=== PATIENT | male | born 1945 | race Caucasian/White ===

== ENCOUNTER 2019-08-20 10:47 | Observation (INO) | payer MEDICARE, OTHER ==
[2019-08-20] MEDS ORDERED: Sodium Chloride 0.9% 10 ML Syringe FLUSH PRN (11:10)
[2019-08-20] MEDS ORDERED: Nitroglycerin 0.4 MG Tab.SL SL ONE (11:10)
[2019-08-20 11:55] LABS: ANION GAP 16.2 mmol/L (10-20); CHLORIDE,CL 100 mmol/L (98-107); SODIUM,NA 140 mmol/L (136-145)
--- NOTE | 2019-08-20 12:16 | CR ---
[id number] RAD/RAD Chest PA or AP 1V EXAM: RAD Chest PA or AP 1V INDICATION: CHEST PAIN. COMPARISON: January 2016. DISCUSSION: Left chest wall cardiac conduction device in place. Cardiomediastinal silhouette is normal in size and contour. No infiltrate, effusion, pneumothorax, or edema. Calcified granuloma in the right lung base. IMPRESSION: Negative examination of the chest. Forrest Fischer MD 08/20/19 [id number] Thank you for allowing us to participate in the care of your patient.
--- NOTE | 2019-08-20 12:25 | EDM.PDOC ---
ED HPI GENERAL MEDICAL PROBLEM - General Chief Complaint: Cardiovascular Problem Stated Complaint: chest pain Time Seen by Provider: 08/20/19 11:00 Source of Information: Reports: Patient History Limitations: Reports: No Limitations - History of Present Illness INITIAL COMMENTS - FREE TEXT/NARRATIVE: Patient comes into the emergency department with complaints of chest discomfort post pacemaker defibrillation. Patient was driving and he felt his legs tingling in the next thing he remembers is waking up in the middle of an intersection. He states earlier in the day he was on a riding tractor snowblowing snow. he denies having any chest pain or discomfort prior to the defibrillation of his pacemaker. Patient states that he was told by his hardware trainer if his pacemaker does ever defibrillate that he needs to report to the emergency department immediately. Patient states that he does have some chest tightness currently however he feels is more musculoskeletal. Prior to arrival he did take a nitroglycerin and did states he did not notice much relief. Currently the patient denies any shortness of breath, nausea, vomiting, GI upset or peripheral edema. Patient does have a history of cardiovascular disease and congestive heart failure. He states he has not taken his Lasix last 2 days for he has not had any waking is excellent had weight loss. Onset: Sudden Location: Reports: Chest Quality: Reports: Ache, Throbbing Severity: Mild Improves with: Reports: None Worsens with: Reports: None Context: Reports: Activity Associated Symptoms: Reports: No Other Symptoms - Related Data Allergies Allergy/AdvReac Type Severity Reaction Status Date / Time colchicine Allergy Hives Verified 08/20/19 11:56 potassium chloride Allergy Hives Verified 08/20/19 11:56 [From Klor-Con] atorvastatin calcium AdvReac Muscle Verified 08/20/19 11:56 [From Lipitor] Aches lisinopril AdvReac Muscle Verified 08/20/19 11:56 Aches rosuvastatin calcium AdvReac Muscle Verified 08/20/19 11:56 [From Crestor] Aches simvastatin [From Zocor] AdvReac Muscle Verified 08/20/19 11:56 Aches Home Meds: Home Meds Cyanocobalamin (Vitamin B-12) [Vitamin B-12] 750 mcg PO BID 02/02/16 [History] Flaxseed Oil [Flax Oil] 4,000 mg PO BID 02/02/16 [History] Furosemide 40 mg PO BID 02/02/16 [History] Hyalur Ac/Chond Sul/Colg II/AA [Hyaluronic Acid 40 MG] 166 mg PO DAILY 02/02/16 [History] Melatonin/Pyridoxine HCl (B6) [Melatonin 3 mg Tablet] 1 tab PO DAILY PRN [History] Rivaroxaban [Xarelto] 20 mg PO BEDTIME 02/02/16 [History] metOLazone [Metolazone] 2.5 mg PO Q3D PRN 02/02/16 [History] Docosahexanoic Acid [DHA] 200 mg PO BID 07/20/16 [History] Folic Acid 400 mg PO BID 07/20/16 [History] Losartan [Cozaar] 25 mg PO DAILY 07/20/16 [History] Nitroglycerin [Nitrostat] 0.4 mg SL Q5M PRN 07/20/16 [History] Non-Formulary Medication [NF Drug] 1,250 mg PO BID 07/20/16 [History] Non-Formulary Medication [NF Drug] 2 tab PO DAILY 07/20/16 [History] Non-Formulary Medication [NF Drug] 30 mg PO BID 07/20/16 [History] Non-Formulary Medication [NF Drug] 200 mg PO BID 07/20/16 [History] Olopatadine [Patanol 0.1% Ophth Soln] 1 drop EYEBOTH BID PRN 07/20/16 [History] [place]-3/DHA/Epa/Fish Oil [[place] 3 500 Softgel] 200 mg PO BID 07/20/16 [History] Pyridoxine HCl (Vitamin B6) [Pyridoxine HCl] 30 mg PO BID 07/20/16 [History] Saw [place] 500 mg PO BID 07/20/16 [History] Selenium 100 mcg PO DAILY 07/20/16 [History] Shark Cartilage [Shark Fin Cartilage] 1 tab PO BID 07/20/16 [History] Spironolactone [Aldactone] 25 mg PO DAILY 07/20/16 [History] Ubiquinol 100 mg PO BID 07/20/16 [History] cycloSPORINE [Restasis] 1 drop EYEBOTH DAILY 07/20/16 [History] Metoprolol Succinate [Toprol XL] 150 mg PO DAILY 11/27/16 [History] Past Medical History HEENT History: Reports: Impaired Vision Cardiovascular History: Reports: Afib, Cardiomyopathy, High Cholesterol Other Cardiovascular History: ICD, ventricular tachycardia, systolic heart failure Respiratory History: Reports: SOB Gastrointestinal History: Reports: None Genitourinary History: Reports: None Musculoskeletal History: Reports: None Neurological History: Reports: None Psychiatric History: Reports: None Endocrine/Metabolic History: Reports: Other (See Below) Other Endocrine/Metabolic History: impaired fasting glucose Hematologic History: Reports: None Immunologic History: Reports: None Oncologic (Cancer) History: Reports: None Dermatologic History: Reports: None - Past Surgical History HEENT Surgical History: Reports: Naso-Sinus Surgery Cardiovascular Surgical History: Reports: AICD Respiratory Surgical History: Reports: None GI Surgical History: Reports: Colonoscopy Male Surgical History: Reports: Prostate Biopsy, Vasectomy, Other (See Below) Neurological Surgical History: Reports: None Musculoskeletal Surgical History: Reports: Other (See Below) Oncologic Surgical History: Reports: None Dermatological Surgical History: Reports: Skin Biopsy Social & Family History - Tobacco Use Smoking Status *Q: Former Smoker Used Tobacco, but Quit: Yes Month/Year Tobacco Last Used: 1/ ED ROS GENERAL - Review of Systems Review Of Systems: Comprehensive ROS is negative, except as noted in HPI. Constitutional: Reports: No Symptoms HEENT: Reports: No Symptoms Respiratory: Reports: No Symptoms Cardiovascular: Reports: No Symptoms Endocrine: Reports: No Symptoms GI/Abdominal: Reports: No Symptoms Musculoskeletal: Reports: No Symptoms Skin: Reports: No Symptoms Neurological: Reports: No Symptoms Psychiatric: Reports: No Symptoms Hematologic/Lymphatic: Reports: No Symptoms ED EXAM, GENERAL - Physical Exam Exam: See Below Exam Limited By: No Limitations General Appearance: Alert, WD/WN, No Apparent Distress Eye Exam: Bilateral Eye: EOMI, PERRL Nose: Normal Inspection, Normal Mucosa Throat/Mouth: Normal Inspection, Normal Lips Head: Atraumatic, Normocephalic Neck: Normal Inspection, Supple, Non-Tender, Full Range of Motion Respiratory/Chest: No Respiratory Distress, Lungs Clear, Normal Breath Sounds, No Accessory Muscle Use, Chest Non-Tender Cardiovascular: Normal Peripheral Pulses, Regular Rate, Rhythm, No Edema, No Murmur Peripheral Pulses: 4+: Radial (L), Radial (R), Dorsalis Pedis (L), Dorsalis Pedis (R) GI/Abdominal: Normal Bowel Sounds, Soft, Non-Tender, No Distention Back Exam: Normal Inspection, Full Range of Motion Extremities: Normal Inspection, Normal Range of Motion, Non-Tender, No Pedal Edema, Normal Capillary Refill Neurological: Alert, Oriented, CN II-XII Intact, Normal Cognition, Normal Gait, No Motor/Sensory Deficits Psychiatric: Normal Affect, Normal Mood Skin Exam: Warm, Dry, Intact, Normal Color Course - Vital Signs Last Recorded V/S: Last Vital Signs Temp 36.9 C 08/20/19 10:47 Pulse 66 08/20/19 10:47 Resp 18 08/20/19 10:47 BP 125/62 08/20/19 10:47 Pulse Ox 92 L 08/20/19 10:47 - Orders/Labs/Meds Orders: Active Orders 24 hr Category Date Time Status Cardiac Monitoring [RC] . DIRECTED Care 08/20/19 11:10 Active EKG Documentation Completion [RC] STAT Care 08/20/19 11:10 Active Chest 1V Frontal [CR] Stat Exams 08/20/19 11:11 Taken Sodium Chloride 0.9% [Saline Flush] Med 08/20/19 11:10 Active 10 ml FLUSH ASDIRECTED PRN Peripheral IV Insertion Adult [OM.PC] Stat Oth 08/20/19 11:10 Ordered Medication Orders Sodium Chloride (Saline Flush) 10 ml FLUSH ASDIRECTED PRN PRN Reason: Keep Vein Open Labs: Laboratory Tests 08/20/19 08/20/19 08/20/19 Range/Units 11:20 11:20 11:20 WBC 5.5 (4.0-10.0) x10^3/uL RBC 4.52 (4.5-6.0) x10^6/uL Hgb 14.3 (14.0-18.0) g/dL Hct 40.6 (40.0-52.0) % MCV 89.8 (78.0-93.0) fL MCH 31.6 (26.0-32.0) pg MCHC 35.2 (32.0-36.0) g/dL RDW Coeff of Angelica 13.0 (10.0-15.0) % Plt Count 196 (130-400) x10^3/uL Neut % (Auto) 67.0 (50.0-80.0) % Lymph % (Auto) 19.1 L (25.0-50.0) % [place] % (Auto) 10.0 (2.0-11.0) % Eos % (Auto) 3.4 (0.0-4.0) % Baso % (Auto) 0.5 (0.2-1.2) % PT 13.5 H (10.0-12.8) SEC INR 1.2 L (2.0-3.5) Sodium 140 (136-145) mmol/L Potassium 3.2 L (3.5-5.1) mmol/L Chloride 100 (98-107) mmol/L Carbon Dioxide 27 (21-32) mmol/L Anion Gap 16.2 (10-20) mmol/L BUN 23 H (7-18) mg/dL Creatinine 1.1 (0.70-1.30) mg/dL Est Cr Clr Drug Dosing TNP Estimated GFR (MDRD) > 60 Glucose 231 H (74-106) mg/dL Calcium 9.7 (8.5-10.1) mg/dL Corrected Calcium 10.26 H (8.5-10.1) mg/dL Total Bilirubin 0.5 (0.2-1.0) mg/dL AST 20 (15-37) U/L ALT 28 (16-63) U/L Alkaline Phosphatase 77 (46-116) U/L POC Troponin I (0.00-0.08) ng/mL NT-Pro-B Natriuret Pep 548 H (<=125) pg/mL Total Protein 7.0 (6.4-8.2) g/dL Albumin 3.3 L (3.4-5.0) g/dL Globulin 3.7 Albumin/Globulin Ratio 0.89 08/20/19 Range/Units 11:25 WBC (4.0-10.0) x10^3/uL RBC (4.5-6.0) x10^6/uL Hgb (14.0-18.0) g/dL Hct (40.0-52.0) % MCV (78.0-93.0) fL MCH (26.0-32.0) pg MCHC (32.0-36.0) g/dL RDW Coeff of Angelica (10.0-15.0) % Plt Count (130-400) x10^3/uL Neut % (Auto) (50.0-80.0) % Lymph % (Auto) (25.0-50.0) % [place] % (Auto) (2.0-11.0) % Eos % (Auto) (0.0-4.0) % Baso % (Auto) (0.2-1.2) % PT (10.0-12.8) SEC INR (2.0-3.5) Sodium (136-145) mmol/L Potassium (3.5-5.1) mmol/L Chloride (98-107) mmol/L Carbon Dioxide (21-32) mmol/L Anion Gap (10-20) mmol/L BUN (7-18) mg/dL Creatinine (0.70-1.30) mg/dL Est Cr Clr Drug Dosing Estimated GFR (MDRD) Glucose (74-106) mg/dL Calcium (8.5-10.1) mg/dL Corrected Calcium (8.5-10.1) mg/dL Total Bilirubin (0.2-1.0) mg/dL AST (15-37) U/L ALT (16-63) U/L Alkaline Phosphatase (46-116) U/L POC Troponin I 0.01 (0.00-0.08) ng/mL NT-Pro-B Natriuret Pep (<=125) pg/mL Total Protein (6.4-8.2) g/dL Albumin (3.4-5.0) g/dL Globulin Albumin/Globulin Ratio Meds: Medications Generic Name Dose Route Start Last Admin Trade Name Freq PRN Reason Stop Dose Admin Sodium Chloride 10 ml 08/20/19 11:10 Saline Flush FLUSH ASDIRECTED PRN Keep Vein Open Discontinued Medications Generic Name Dose Route Start Last Admin Trade Name Freq PRN Reason Stop Dose Admin Nitroglycerin 0.4 mg 08/20/19 11:10 Nitrostat SL 08/20/19 11:11 ONETIME ONE Departure - Departure Time of Disposition: 12:30 Disposition: Refer to Observation Condition: Good Clinical Impression: Implantable cardioverter-defibrillator discharge Chest pain Qualifiers: Chest pain type: unspecified Qualified Code(s): R07.9 - Chest pain, unspecified Referrals: Oz Restrepo NP [Primary Care Provider] - Sepsis Event Note - Evaluation Sepsis Screening Result: No Definite Risk - Focused Exam Vital Signs: Vital Signs Temp Pulse Resp BP Pulse Ox 08/20/19 10:47 36.9 C 66 18 125/62 92 L Date Exam was Performed: 08/20/19 Time Exam was Performed: 12:16 - Problem List & Annotations (1) Chest pain SNOMED Code(s): 73096625 Code(s): R07.9 - CHEST PAIN, UNSPECIFIED Status: Acute Current Visit: Yes Qualifiers: Chest pain type: unspecified Qualified Code(s): R07.9 - Chest pain, unspecified (2) Implantable cardioverter-defibrillator discharge SNOMED Code(s): 090501829, 035988686 Code(s): Z45.02 - ENCNTR FOR ADJUST AND MGMT OF AUTOMATIC IMPLNTBL CARD DEFIB Status: Acute Current Visit: Yes - Problem List Review Problem List Initiated/Reviewed/Updated: Yes - My Orders Last 24 Hours: My Active Orders 08/20/19 11:10 Cardiac Monitoring [RC] . DIRECTED EKG Documentation Completion [RC] STAT Sodium Chloride 0.9% [Saline Flush] 10 ml FLUSH ASDIRECTED PRN Peripheral IV Insertion Adult [OM.PC] Stat 08/20/19 11:11 Chest 1V Frontal [CR] Stat - Assessment/Plan Admission H&P: Please use this note as an admission H&P Last 24 Hours: My Active Orders 08/20/19 11:10 Cardiac Monitoring [RC] . DIRECTED EKG Documentation Completion [RC] STAT Sodium Chloride 0.9% [Saline Flush] 10 ml FLUSH ASDIRECTED PRN Peripheral IV Insertion Adult [OM.PC] Stat 08/20/19 11:11 Chest 1V Frontal [CR] Stat Assessment:: 1. Pacemaker/defibrillator discharge 2. Chest pain Plan: 1. Labs completed in the ER. Results reviewed with the patient 2. EKG completed in the ER. Results reviewed with patient 3. Chest x-ray completed in the ER. Results reviewed with patient 4. IV initiated in the ER 5 . Nitroglycerin sublingual given in the ER. 6. Patient states that he still has some musculoskeletal tenderness. He is unsure if it's related to her increased workload over the past couple days with the snow removal. He states currently he does not feel any chest tightness. Patient is willing to be admitted observation for further medical management. Currently the patient is not wanting to be transferred to higher level of care he liked to be observed. 7. Patient will be admitted to observation as a code level 1, cardiac monitoring, cardiac enzymes monitoring, labs ordered for a.m. nursing staff updated. Patient is agreeable with the above plan of care. 8. All questions and concerns were addressed prior to patient's admission.
[2019-08-20] MEDS ORDERED: Nitroglycerin 0.4 MG Tab.SL SL PRN ×2 (12:33→15:00)
[2019-08-20] MEDS ORDERED: Ondansetron 4 MG Tab.DIS PO PRN (12:33)
[2019-08-20] MEDS ORDERED: Acetaminophen 325 MG Tab PO PRN (12:36)
[2019-08-20] MEDS ORDERED: Ibuprofen 200 MG Tab PO PRN (12:36)
[2019-08-20] MEDS ORDERED: Metolazone 2.5 MG Tab PO PRN (15:00)
[2019-08-20] MEDS ORDERED: RIVAROXABAN 20 MG PO SCH (20:00)
[2019-08-20] MEDS ORDERED: DHA PO SCH (20:00)
[2019-08-20] MEDS ORDERED: CYANOCOBALAMIN PO SCH (20:00)
[2019-08-20] MEDS ORDERED: DOCOSAHEXANOIC ACID 200 MG PO SCH (20:00)
[2019-08-20] MEDS ORDERED: Furosemide 40 MG Tab PO SCH (20:00)
[2019-08-20] MEDS ORDERED: SAW PALMETTO 500 MG PO SCH (20:00)
[2019-08-20] MEDS ORDERED: SHARK CARTILAGE PO SCH (20:00)
[2019-08-20] MEDS ORDERED: OMEGA PO SCH (20:00)
[2019-08-20] MEDS ORDERED: FLAXSEED OIL PO SCH (20:00)
[2019-08-20] MEDS ORDERED: PYRIDOXINE HCL PO SCH (20:00)
[2019-08-20] MEDS ORDERED: UBIQUINOL 100 MG PO SCH (20:00)
[2019-08-20] MEDS ORDERED: FISH OIL PO SCH (20:00)
[2019-08-20] MEDS ORDERED: EPA PO SCH (20:00)
[2019-08-20] MEDS ORDERED: FOLIC ACID 400 MG PO SCH (20:00)
[2019-08-20] MEDS ORDERED: METOPROLOL SUCCINATE 100 MG PO SCH (22:00)
[2019-08-20] MEDS ORDERED: ESCITALOPRAM 10 MG PO SCH (22:00)
[2019-08-21] MEDS ORDERED: Nitroglycerin 2% Oint 1 GM UD Packet TOP ONE (01:27)
[2019-08-21] MEDS ORDERED: Aspirin 81 MG Tab.Chew PO ONE (01:31)
[2019-08-21 01:39] VITALS: BP 99/61; PULSE 76
--- NOTE | 2019-08-21 01:42 | PCM.DCSUM1 ---
Discharge Summary - Hospital Course Free Text/Narrative:: Pt. has been admitted to [facility] with tele following an AICD discharge earlier today. Care was assumed of this patient at shift change at 1900. Please refer to admission H and P by Vee Gallagher NP. Pt. initial troponin and repeat troponin were both negative. His troponin drawn at midnight was 0.153. When questioned, pt. stated that he had been experiencing some mild chest discomfort that was not reported to his nurse. Denies any jaw, arm, neck or back pain. No shortness of breath. Repeat EKG did not reveal any acute ST or T wave changes. He was in a-fib, this AM he was in a sinus rhythm. He has a history of paroxysmal atrial fibrillation and is currently on xaralto. Pt. states that his last EKG showed "40% blockage" in one of his coronary arteries, he was unable to recall which one. - Discharge Data Discharge Date: 08/21/19 Discharge Disposition: DC/Tfer to Acute Hospital 02 Condition: Good - Referral to Home Health Primary Care Physician: Oz Restrepo NP - Discharge Diagnosis/Problem(s) (1) NSTEMI (non-ST elevated myocardial infarction) SNOMED Code(s): 28461486 ICD Code: I21.4 - NON-ST ELEVATION (NSTEMI) MYOCARDIAL INFARCTION Status: Acute Current Visit: No - Discharge Plan Home Medications: Home Meds Cyanocobalamin (Vitamin B-12) [Vitamin B-12] 750 mcg PO BID 02/02/16 [History] Flaxseed Oil [Flax Oil] 4,000 mg PO BID 02/02/16 [History] Furosemide 80 mg PO BID 02/02/16 [History] Rivaroxaban [Xarelto] 20 mg PO BEDTIME 02/02/16 [History] metOLazone [Metolazone] 2.5 mg PO Q3D PRN 02/02/16 [History] Docosahexanoic Acid [DHA] 200 mg PO BID 07/20/16 [History] Folic Acid 400 mg PO BID 07/20/16 [History] Nitroglycerin [Nitrostat] 0.4 mg SL Q5M PRN 07/20/16 [History] Non-Formulary Medication [NF Drug] 1,250 mg PO BID 07/20/16 [History] Non-Formulary Medication [NF Drug] 2 tab PO DAILY 07/20/16 [History] Non-Formulary Medication [NF Drug] 30 mg PO BID 07/20/16 [History] Non-Formulary Medication [NF Drug] 200 mg PO BID 07/20/16 [History] [place]-3/DHA/Epa/Fish Oil [[place] 3 500 Softgel] 200 mg PO BID 07/20/16 [History] Pyridoxine HCl (Vitamin B6) [Pyridoxine HCl] 30 mg PO BID 07/20/16 [History] Saw [place] 500 mg PO BID 07/20/16 [History] Selenium 100 mcg PO DAILY 07/20/16 [History] Shark Cartilage [Shark Fin Cartilage] 1 tab PO BID 07/20/16 [History] Spironolactone [Aldactone] 50 mg PO DAILY 07/20/16 [History] Ubiquinol 100 mg PO BID 07/20/16 [History] cycloSPORINE [Restasis] 1 drop EYEBOTH DAILY 07/20/16 [History] Metoprolol Succinate [Toprol XL] 100 mg PO DAILY 11/27/16 [History] Escitalopram [Lexapro] 10 mg PO DAILY 08/20/19 [History] Forms: ED Department Discharge Referrals: Oz Restrepo NP [Primary Care Provider] - - Discharge Summary/Plan Comment DC Time >30 min.: Yes Discharge Summary/Plan Comment: Pt. will be transferred to [facility]. Dr. Gonzales, hospitalist, graciously accepts patient in transfer. He was given a 324mg aspirin prior to transfer. He is a full code. He will be transported via [facility] ground ambulance. - General Info Date of Service: 08/21/19 Functional Status: Reports: Pain Controlled - Review of Systems General: Reports: No Symptoms HEENT: Reports: No Symptoms Pulmonary: Reports: No Symptoms Cardiovascular: Reports: Chest Pain, Other (See HPI) Gastrointestinal: Reports: No Symptoms Genitourinary: Reports: No Symptoms Musculoskeletal: Reports: No Symptoms Skin: Reports: No Symptoms Neurological: Reports: No Symptoms Psychiatric: Reports: No Symptoms - Patient Data Vitals - Most Recent: Last Vital Signs Temp 36.7 C 08/20/19 21:49 Pulse 68 08/20/19 21:49 Resp 17 08/20/19 21:49 BP 112/59 L 08/20/19 21:49 Pulse Ox 93 L 08/20/19 21:49 Weight - Most Recent: 97.386 kg I&O - Last 24 hours: Intake & Output 08/20/19 08/20/19 08/21/19 14:59 22:59 06:59 Intake Total 300 480 Output Total 150 Balance 150 480 Lab Results - Last 24 hrs: Laboratory Results - last 24 hr 08/20/19 08/20/19 08/20/19 Range/Units 11:20 11:20 11:20 WBC 5.5 (4.0-10.0) x10^3/uL RBC 4.52 (4.5-6.0) x10^6/uL Hgb 14.3 (14.0-18.0) g/dL Hct 40.6 (40.0-52.0) % MCV 89.8 (78.0-93.0) fL MCH 31.6 (26.0-32.0) pg MCHC 35.2 (32.0-36.0) g/dL RDW Coeff of Angelica 13.0 (10.0-15.0) % Plt Count 196 (130-400) x10^3/uL Neut % (Auto) 67.0 (50.0-80.0) % Lymph % (Auto) 19.1 L (25.0-50.0) % [place] % (Auto) 10.0 (2.0-11.0) % Eos % (Auto) 3.4 (0.0-4.0) % Baso % (Auto) 0.5 (0.2-1.2) % PT 13.5 H (10.0-12.8) SEC INR 1.2 L (2.0-3.5) Sodium 140 (136-145) mmol/L Potassium 3.2 L (3.5-5.1) mmol/L Chloride 100 (98-107) mmol/L Carbon Dioxide 27 (21-32) mmol/L Anion Gap 16.2 (10-20) mmol/L BUN 23 H (7-18) mg/dL Creatinine 1.1 (0.70-1.30) mg/dL Est Cr Clr Drug Dosing TNP Estimated GFR (MDRD) > 60 Glucose 231 H (74-106) mg/dL Calcium 9.7 (8.5-10.1) mg/dL Corrected Calcium 10.26 H (8.5-10.1) mg/dL Total Bilirubin 0.5 (0.2-1.0) mg/dL AST 20 (15-37) U/L ALT 28 (16-63) U/L Alkaline Phosphatase 77 (46-116) U/L POC Troponin I (0.00-0.08) ng/mL Troponin I (0.00-0.08) ng/mL NT-Pro-B Natriuret Pep 548 H (<=125) pg/mL Total Protein 7.0 (6.4-8.2) g/dL Albumin 3.3 L (3.4-5.0) g/dL Globulin 3.7 Albumin/Globulin Ratio 0.89 08/20/19 08/20/19 08/21/19 Range/Units 11:25 17:00 00:10 WBC (4.0-10.0) x10^3/uL RBC (4.5-6.0) x10^6/uL Hgb (14.0-18.0) g/dL Hct (40.0-52.0) % MCV (78.0-93.0) fL MCH (26.0-32.0) pg MCHC (32.0-36.0) g/dL RDW Coeff of Angelica (10.0-15.0) % Plt Count (130-400) x10^3/uL Neut % (Auto) (50.0-80.0) % Lymph % (Auto) (25.0-50.0) % [place] % (Auto) (2.0-11.0) % Eos % (Auto) (0.0-4.0) % Baso % (Auto) (0.2-1.2) % PT (10.0-12.8) SEC INR (2.0-3.5) Sodium (136-145) mmol/L Potassium (3.5-5.1) mmol/L Chloride (98-107) mmol/L Carbon Dioxide (21-32) mmol/L Anion Gap (10-20) mmol/L BUN (7-18) mg/dL Creatinine (0.70-1.30) mg/dL Est Cr Clr Drug Dosing Estimated GFR (MDRD) Glucose (74-106) mg/dL Calcium (8.5-10.1) mg/dL Corrected Calcium (8.5-10.1) mg/dL Total Bilirubin (0.2-1.0) mg/dL AST (15-37) U/L ALT (16-63) U/L Alkaline Phosphatase (46-116) U/L POC Troponin I 0.01 (0.00-0.08) ng/mL Troponin I 0.02 0.153 H* (0.00-0.08) ng/mL NT-Pro-B Natriuret Pep (<=125) pg/mL Total Protein (6.4-8.2) g/dL Albumin (3.4-5.0) g/dL Globulin Albumin/Globulin Ratio Med Orders - Current: Current Medications Acetaminophen (Tylenol) 650 mg PO Q4H PRN PRN Reason: Pain (Mild 1-3)/fever Aspirin (Halfprin) 81 mg PO DAILY [facility] Furosemide (Lasix) 80 mg PO BID [facility] Ibuprofen (Motrin) 600 mg PO Q6H PRN PRN Reason: Pain (mild 1-3) Metolazone (Zaroxolyn) 2.5 mg PO Q3D PRN PRN Reason: Edema Nitroglycerin (Nitrostat) 0.4 mg SL Q5M PRN PRN Reason: Chest Pain Stop: 08/21/19 12:35 Nitroglycerin (Nitrostat) 0.4 mg SL Q5M PRN PRN Reason: Chest Pain Nitroglycerin (Nitro-Bid 2%) 1 gm TOP ONETIME ONE Stop: 08/21/19 01:28 Non-Formulary Medication (Cyanocobalamin (Vitamin B-12) [Vitamin B-12]) 750 mcg PO BID [facility] Non-Formulary Medication (Cyclosporine [Restasis]) 1 drop EYEBOTH DAILY [facility] Non-Formulary Medication (Docosahexanoic Acid [Dha]) 200 mg PO BID [facility] Escitalopram [ Lexapro] 10 MgPtom 10 mg PO BEDTIME [facility] Last Admin: 08/21/19 00:34 Dose: 10 mg Non-Formulary Medication (Flaxseed Oil [Flax Oil]) 4,000 mg PO BID [facility] Non-Formulary Medication (Folic Acid [Folic Acid]) 400 mg PO BID [facility] Metoprolol Succinate (100mg Ptom) 1 each PO BEDTIME [facility] Last Admin: 08/21/19 00:30 Dose: 1 each Non-Formulary Medication (Ash[place]-3/Dha/Epa/Fish Oil [[place] 3 500 Softgel]) 200 mg PO BID [facility] Non-Formulary Medication (Pyridoxine Hcl (Vitamin B6) [Pyridoxine Hcl]) 30 mg PO BID [facility] Rivaroxaban [Xarelto (] 20 MgPtom) 20 mg PO BEDTIME [facility] Last Admin: 08/21/19 00:29 Dose: 20 mg Non-Formulary Medication (Saw [place] [Saw [place]]) 500 mg PO BID [facility] Non-Formulary Medication (Selenium [Selenium]) 100 mcg PO DAILY [facility] Non-Formulary Medication (Shark Cartilage [Shark Fin Cartilage]) 1 tab PO BID [facility] Non-Formulary Medication (Ubiquinol [Ubiquinol]) 100 mg PO BID [facility] Ondansetron HCl (Zofran Odt) 4 mg PO Q4H PRN PRN Reason: Nausea/Vomiting Sodium Chloride (Saline Flush) 10 ml FLUSH ASDIRECTED PRN PRN Reason: Keep Vein Open Spironolactone (Aldactone) 50 mg PO DAILY [facility] Discontinued Medications Aspirin (Aspirin) 324 mg PO ONETIME ONE Stop: 08/21/19 01:32 Nitroglycerin (Nitrostat) 0.4 mg SL ONETIME ONE Stop: 08/20/19 11:11 Last Admin: 08/20/19 11:41 Dose: 0.4 mg - Exam General: Reports: Alert, Oriented Lungs: Reports: Clear to Auscultation, Normal Respiratory Effort Cardiovascular: Reports: Regular Rate, Irregular Rhythm GI/Abdominal Exam: Soft, Non-Tender, No Organomegaly, No Distention (Male) Exam: Deferred Rectal (Males) Exam: Deferred Back Exam: Reports: Normal Inspection, Full Range of Motion Extremities: Normal Inspection, Normal Range of Motion, Non-Tender, No Pedal Edema, Normal Capillary Refill Skin: Reports: Warm, Dry, Intact Psy/Mental Status: Reports: Alert, Normal Affect, Normal Mood
[2019-08-21] MEDS ORDERED: Spironolactone 25 MG Tab PO SCH (08:00)
[2019-08-21] MEDS ORDERED: SELENIUM 100 MCG PO SCH (08:00)
[2019-08-21] MEDS ORDERED: Non-Formulary Medication 1 Each (Cyclosporine [Restasis] 1 DROP) EYEBOTH SCH (08:00)
[2019-08-21] MEDS ORDERED: Aspirin 81 MG Tab.EC PO SCH (08:00)
== END 2019-08-21 03:20 | disposition short-term general hospital (02) ==
LOC: VM.ED 10:47 → VM.MS 12:17
PROVIDERS: ADMIT Nurse Practitioner; ATTEND Nurse Practitioner
DX: I21.4 Non-ST elevation (NSTEMI) myocardial infarction (principal); I48.0 Paroxysmal atrial fibrillation; I50.22 Chronic systolic (congestive) heart failure; I42.9 Cardiomyopathy, unspecified; E78.00 Pure hypercholesterolemia, unspecified; Z88.8 Allergy status to other drugs, medicaments and biological substances; Z95.810 Presence of automatic (implantable) cardiac defibrillator; Z87.891 Personal history of nicotine dependence; Z79.01 Long term (current) use of anticoagulants; Z79.899 Other long term (current) drug therapy
CPT/HCPCS: 36415; 71045; 80053; 83880; 84484; 85025; 85610; 93005; 99285-25; A9270-GY; G0378

== ENCOUNTER 2020-05-04 14:08 | Emergency (ER) | payer MEDICARE, OTHER ==
--- NOTE | 2020-05-04 14:47 | EDM.PDOC ---
ED HPI GENERAL MEDICAL PROBLEM - General Chief Complaint: General Stated Complaint: ER Time Seen by Provider: 05/04/20 14:28 - History of Present Illness INITIAL COMMENTS - FREE TEXT/NARRATIVE: Amish is a 74 y/o male who arrives to the ER via EMS. He called 911 thi AM due to excessive fatigue and overall weakness. He reports that he had an EGD last Sunday at [facility] in [place] and the following day he had a colonoscopy. During that hospital stay he was given a unit of blood for a hgb of 7.0. Patient had apparently presented to [facility] with SOB and then while admitted melena was noted along with acute anemia so further GI studies were done. He reports he has a hard time taking a deep breath and he is so weak. He can hardly eat. He is supposed to follow up with Oz Restrepo CNP on Sunday, but he did think he could make it until then as bad as he feels. Patient was admitted at [facility] 04-24-2020 through 04-30-2020. - Related Data Allergies Allergy/AdvReac Type Severity Reaction Status Date / Time amiodarone Allergy Hives Verified 05/04/20 14:18 colchicine Allergy Hives Verified 05/04/20 14:18 potassium chloride Allergy Hives Verified 05/04/20 14:18 [From Klor-Con] atorvastatin calcium AdvReac Muscle Verified 05/04/20 14:18 [From Lipitor] Aches lisinopril AdvReac Muscle Verified 05/04/20 14:18 Aches rosuvastatin calcium AdvReac Muscle Verified 05/04/20 14:18 [From Crestor] Aches simvastatin [From Zocor] AdvReac Muscle Verified 05/04/20 14:18 Aches Home Meds: Home Meds Cyanocobalamin (Vitamin B-12) [Vitamin B-12] 750 mcg PO BID 02/02/16 [History] Flaxseed Oil [Flax Oil] 4,000 mg PO BID 02/02/16 [History] Furosemide 80 mg PO BID 02/02/16 [History] Rivaroxaban [Xarelto] 20 mg PO BEDTIME 02/02/16 [History] metOLazone [Metolazone] 2.5 mg PO Q3D PRN 02/02/16 [History] Docosahexaenoic Acid [DHA] 200 mg PO BID 07/20/16 [History] Folic Acid 400 mg PO BID 07/20/16 [History] Nitroglycerin [Nitrostat] 0.4 mg SL Q5M PRN 07/20/16 [History] Non-Formulary Medication [NF Drug] 1,250 mg PO BID 07/20/16 [History] Non-Formulary Medication [NF Drug] 2 tab PO DAILY 07/20/16 [History] Non-Formulary Medication [NF Drug] 30 mg PO BID 07/20/16 [History] Non-Formulary Medication [NF Drug] 200 mg PO BID 07/20/16 [History] [place]-3/DHA/Epa/Fish Oil [[place] 3 500 Softgel] 200 mg PO BID 07/20/16 [History] Pyridoxine HCl (Vitamin B6) [Pyridoxine HCl] 30 mg PO BID 07/20/16 [History] Saw [place] 500 mg PO BID 07/20/16 [History] Selenium 100 mcg PO DAILY 07/20/16 [History] Shark Cartilage [Shark Fin Cartilage] 1 tab PO BID 07/20/16 [History] Spironolactone [Aldactone] 50 mg PO DAILY 07/20/16 [History] Ubiquinol 100 mg PO BID 07/20/16 [History] cycloSPORINE [Restasis] 1 drop EYEBOTH DAILY 07/20/16 [History] Metoprolol Succinate [Toprol XL] 100 mg PO DAILY 11/27/16 [History] Escitalopram [Lexapro] 10 mg PO DAILY 08/20/19 [History] Past Medical History HEENT History: Reports: Impaired Vision Cardiovascular History: Reports: Afib, Cardiomyopathy, High Cholesterol Other Cardiovascular History: ICD, ventricular tachycardia, systolic heart failure Respiratory History: Reports: SOB Gastrointestinal History: Reports: None Genitourinary History: Reports: None Musculoskeletal History: Reports: None Neurological History: Reports: None Psychiatric History: Reports: None Endocrine/Metabolic History: Reports: Other (See Below) Other Endocrine/Metabolic History: impaired fasting glucose Hematologic History: Reports: None Immunologic History: Reports: None Oncologic (Cancer) History: Reports: None Dermatologic History: Reports: None - Past Surgical History HEENT Surgical History: Reports: Naso-Sinus Surgery Cardiovascular Surgical History: Reports: AICD Respiratory Surgical History: Reports: None GI Surgical History: Reports: Colonoscopy Male Surgical History: Reports: Prostate Biopsy, Vasectomy, Other (See Below) Neurological Surgical History: Reports: None Musculoskeletal Surgical History: Reports: Other (See Below) Oncologic Surgical History: Reports: None Dermatological Surgical History: Reports: Skin Biopsy Social & Family History - Tobacco Use Smoking Status *Q: Former Smoker Used Tobacco, but Quit: Yes Month/Year Tobacco Last Used: 1982 - Caffeine Use Caffeine Use: Reports: Soda, Tea - Recreational Drug Use Recreational Drug Use: No ED ROS GENERAL - Review of Systems Review Of Systems: See Below Constitutional: Reports: Weakness, Fatigue HEENT: Reports: No Symptoms Respiratory: Reports: Shortness of Breath Cardiovascular: Reports: No Symptoms Endocrine: Reports: No Symptoms GI/Abdominal: Reports: Decreased Appetite, Nausea. Denies: Hematemesis, Hematochezia, Melena, Vomiting : Reports: No Symptoms Musculoskeletal: Reports: No Symptoms Skin: Reports: No Symptoms Neurological: Reports: Weakness Psychiatric: Reports: No Symptoms Hematologic/Lymphatic: Reports: Anemia Immunologic: Reports: No Symptoms ED EXAM, GENERAL - Physical Exam Exam: See Below Exam Limited By: No Limitations General Appearance: Alert, WD/WN, No Apparent Distress (Elderly male) Eye Exam: Bilateral Eye: PERRL Ears: Normal External Exam, Normal Canal, Hearing Grossly Normal, Normal TMs Nose: Normal Inspection, Normal Mucosa Throat/Mouth: Normal Inspection, Normal Lips, Normal Teeth, Normal Voice, No Airway Compromise Head: Atraumatic, Normocephalic Neck: Normal Inspection, Supple Respiratory/Chest: No Respiratory Distress, Lungs Clear, Chest Non-Tender Cardiovascular: Normal Peripheral Pulses, Regular Rate, Rhythm, No Murmur, No Rub GI/Abdominal: Normal Bowel Sounds, Soft, Non-Tender, No Organomegaly (Male) Exam: Deferred Rectal (Males) Exam: Deferred Back Exam: Normal Inspection Extremities: Normal Inspection, Normal Capillary Refill Neurological: Alert, CN II-XII Intact, No Motor/Sensory Deficits Psychiatric: Flat Affect Skin Exam: Warm, Dry, Intact, Pallor Lymphatic: No Adenopathy EKG INTERPRETATION EKG Date: 05/04/20 Time: 17:33 Rhythm: Other (PVCs) Rate (Beats/Min): 98 [place]: Normal P-Wave: Absent QRS: Normal ST-T: Normal QT: Normal Comparison: No Change (Compared with previous 08-21-2019) Course - Vital Signs Text/Narrative:: 1428 The patient was seen by the [facility]. Labs ordered. Vitals stable. 1540 Labs reviewed. Note Hbg=7.4, Hct=25.1. Obtaining records from [facility] for review. 1555 Patient SOB without oxygen and requesting oxygen on for comfort. Sats-96% on RA. SFOB collected, no obvious blood on exam. 1630 +SFOB noted. Discussed with patient. 1645 [facility] contacted. Case discussed with Dr Burt and patient accepted. Additional labs, CXR, and EKG ordered. Will also transfuse 1 unit PRBCs and give Lasix 40mg IVP. Awaiting bed assignment. Plan discussed with patient who agrees. 1720 CXR reviewed, note right basilar pulmonary infiltrate, will give Ceftriaxone 1gm IVP to cover for pneumonia. 1752 Notified by lab of elevated Troponin 0.219. No EKG changes noted from previous, cannot exclude NSTEMI. Called [facility] and Dr Burt notified, awaiting return from [facility]. Last Recorded V/S: Last Vital Signs Temp 36.6 C 05/04/20 14:11 Pulse 79 05/04/20 16:43 Resp 18 05/04/20 16:43 BP 123/71 05/04/20 16:43 Pulse Ox 96 05/04/20 16:43 - Orders/Labs/Meds Orders: Active Orders 24 hr Category Date Time Status EKG Documentation Completion [RC] STAT Care 05/04/20 17:04 Ordered Chest 1V Frontal [CR] Stat Exams 05/04/20 17:03 Ordered INR,PT,PROTHROMBIN TIME [COAG] Stat Lab 05/04/20 17:04 Ordered PRO B-TYPE NATRIUR PEPT,BNPPRO [CHEM] Stat Lab 05/04/20 17:04 Ordered PTT,PARTIAL THROMBOPLSTIN TIME [COAG] Stat Lab 05/04/20 17:04 Ordered RED BLOOD CELLS LP [BBK] Stat Lab 05/04/20 17:00 Ordered RED BLOOD CELLS LP [BBK] Stat Lab 05/04/20 17:10 Stop Req TROPONIN I [CHEM] Stat Lab 05/04/20 17:04 Ordered TYPE AND SCREEN [BBK] Stat Lab 05/04/20 17:00 Ordered UA RFX CHASE AND CULT IF INDIC [URIN] Stat Lab 05/04/20 16:20 Ordered Transfuse Red Blood Cells [COMM] Stat Oth 05/04/20 17:01 Ordered Transfuse Red Blood Cells [COMM] Stat Ot 05/04/20 17:10 Ordered Labs: Laboratory Tests 05/04/20 05/04/20 05/04/20 Range/Units 14:38 15:00 15:00 WBC 8.4 (4.0-10.0) x10^3/uL RBC 3.20 L (4.5-6.0) x10^6/uL Hgb 7.4 L D (14.0-18.0) g/dL Hct 25.1 L (40.0-52.0) % MCV 78.4 D (78.0-93.0) fL MCH 23.1 L (26.0-32.0) pg MCHC 29.5 L (32.0-36.0) g/dL RDW Coeff of Angelica 16.7 H (10.0-15.0) % Plt Count 254 (130-400) x10^3/uL Add Manual Diff Yes Neutrophils % (Manual) 87 H (50-80) % Lymphocytes % (Manual) 9 L (25-50) % Monocytes % (Manual) 3 (2-11) % Eosinophils % (Manual) 1 (0-4) % Nucleated RBCs 1 (0-5) /100WBC Hypersegmented Neuts Rare H Platelet Estimate Adequate Hypochromasia 2+ moderate H Anisocytosis 1+ slight H Microcytosis 1+ slight H Ovalocytes 1+ slight H Rouleaux 1+ slight H Sodium 136 (136-145) mmol/L Potassium 3.5 (3.5-5.1) mmol/L Chloride 97 L (98-107) mmol/L Carbon Dioxide 27 (21-32) mmol/L Anion Gap 15.5 (10-20) mmol/L BUN 38 H (7-18) mg/dL Creatinine 1.4 H (0.70-1.30) mg/dL Est Cr Clr Drug Dosing 50.80 mL/min Estimated GFR (MDRD) 50 Glucose 180 H (74-106) mg/dL Calcium 9.2 (8.5-10.1) mg/dL Magnesium 1.9 (1.8-2.4) mg/dL Stool Occult Blood (NEGATIVE) SARS CoV-2 RNA Rapid ANNA Negative (NEGATIVE) 05/04/20 Range/Units 16:26 WBC (4.0-10.0) x10^3/uL RBC (4.5-6.0) x10^6/uL Hgb (14.0-18.0) g/dL Hct (40.0-52.0) % MCV (78.0-93.0) fL MCH (26.0-32.0) pg MCHC (32.0-36.0) g/dL RDW Coeff of Angelica (10.0-15.0) % Plt Count (130-400) x10^3/uL Add Manual Diff Neutrophils % (Manual) (50-80) % Lymphocytes % (Manual) (25-50) % Monocytes % (Manual) (2-11) % Eosinophils % (Manual) (0-4) % Nucleated RBCs (0-5) /100WBC Hypersegmented Neuts Platelet Estimate Hypochromasia Anisocytosis Microcytosis Ovalocytes Rouleaux Sodium (136-145) mmol/L Potassium (3.5-5.1) mmol/L Chloride (98-107) mmol/L Carbon Dioxide (21-32) mmol/L Anion Gap (10-20) mmol/L BUN (7-18) mg/dL Creatinine (0.70-1.30) mg/dL Est Cr Clr Drug Dosing mL/min Estimated GFR (MDRD) Glucose (74-106) mg/dL Calcium (8.5-10.1) mg/dL Magnesium (1.8-2.4) mg/dL Stool Occult Blood Positive H (NEGATIVE) SARS CoV-2 RNA Rapid ANNA (NEGATIVE) Meds: Medications Discontinued Medications Generic Name Dose Route Start Last Admin Trade Name Freq PRN Reason Stop Dose Admin Furosemide 40 mg 05/04/20 17:01 Lasix IVPUSH 05/04/20 17:02 NOW ONE - Radiology Interpretation Free Text/Narrative:: CXR 1V=right basilar pulmonary infiltrate noted (See final report) Departure - Departure Time of Disposition: 16:55 Disposition: DC/Tfer to [facility] Condition: Good Clinical Impression: Acute blood loss anemia, Cardiomyopathy, Chronic anticoagulation, SOB (shortness of breath), Positive occult stool blood test, Right lower lobe pulmonary infiltrate, Elevated troponin - Discharge Information Referrals: Bitz,Oz, [employer] [employer] [facility] [Primary Care Provider] - Forms: ED Department Discharge, Interfacility Transfer MEGAN Sepsis Event Note (ED) - Evaluation Sepsis Screening Result: No Definite Risk - Focused Exam Vital Signs: Vital Signs Temp Pulse Resp BP Pulse Ox 05/04/20 16:43 79 18 123/71 96 05/04/20 14:11 36.6 C 99 20 110/67 98 - My Orders Last 24 Hours: My Active Orders 05/04/20 16:20 UA RFX CHASE AND CULT IF INDIC [URIN] Stat 05/04/20 17:00 RED BLOOD CELLS LP [BBK] Stat TYPE AND SCREEN [BBK] Stat 05/04/20 17:01 Transfuse Red Blood Cells [COMM] Stat 05/04/20 17:03 Chest 1V Frontal [CR] Stat 05/04/20 17:04 EKG Documentation Completion [RC] STAT INR,PT,PROTHROMBIN TIME [COAG] Stat PRO B-TYPE NATRIUR PEPT,BNPPRO [CHEM] Stat PTT,PARTIAL THROMBOPLSTIN TIME [COAG] Stat TROPONIN I [CHEM] Stat 05/04/20 17:10 RED BLOOD CELLS LP [BBK] Stat Transfuse Red Blood Cells [COMM] Stat - Assessment/Plan Last 24 Hours: My Active Orders 05/04/20 16:20 UA RFX CHASE AND CULT IF INDIC [URIN] Stat 05/04/20 17:00 RED BLOOD CELLS LP [BBK] Stat TYPE AND SCREEN [BBK] Stat 05/04/20 17:01 Transfuse Red Blood Cells [COMM] Stat 05/04/20 17:03 Chest 1V Frontal [CR] Stat 05/04/20 17:04 EKG Documentation Completion [RC] STAT INR,PT,PROTHROMBIN TIME [COAG] Stat PRO B-TYPE NATRIUR PEPT,BNPPRO [CHEM] Stat PTT,PARTIAL THROMBOPLSTIN TIME [COAG] Stat TROPONIN I [CHEM] Stat 05/04/20 17:10 RED BLOOD CELLS LP [BBK] Stat Transfuse Red Blood Cells [COMM] Stat Assessment:: 1)Acute Blood Loss Anemia 2)SOB 3)Cardiomyopathy 4)Chronic Anticoagulation for Hx Atrial Fib 5)Positive Occult Blood test 6)COVID test negative 7)Right Basilar Infiltrate R/O Pneumonia 8)Elevated Troponin, Cannot exlcude NSTEMI Plan: -Will transfuse 1 unit of PRBCs, start prior to transport -Transfer to [facility] to Dr Burt via [facility]
[2020-05-04 15:23] LABS: ANION GAP 15.5 mmol/L (10-20)
[2020-05-04] MEDS ORDERED: Furosemide 40 MG/4 ML VIAL IVPUSH ONE (17:01)
[2020-05-04 17:20] LABS: PTT,PARTIAL THROMBOPLSTIN TIME 35.2 SEC (25.6-32.8)
--- NOTE | 2020-05-04 17:25 | CR ---
[id number] RAD/RAD Chest PA or AP 1V EXAM: RAD Chest PA or AP 1V INDICATION: SHORT OF BREATH. COMPARISON: August 20, 2019. DISCUSSION: Left chest wall cardiac conduction device. Cardiomediastinal silhouette is stable in size and contour. Right basilar pulmonary infiltrate. No pneumothorax or pleural effusion. Left lung is clear. IMPRESSION: Right basilar pulmonary infiltrate. Natanael Hinojosa DO 05/04/20 1724 Thank you for allowing us to participate in the care of your patient.
[2020-05-04] MEDS ORDERED: cefTRIAXone 1 GM Vial IVPUSH ONE (17:26)
[2020-05-04 19:14] VITALS: BP 110/74; PULSE 75
== END 2020-05-04 19:17 ==
LOC: VM.ED 14:08
DX: R91.8 Other nonspecific abnormal finding of lung field (principal); I42.9 Cardiomyopathy, unspecified; R06.02 Shortness of breath; R79.89 Other specified abnormal findings of blood chemistry; D62 Acute posthemorrhagic anemia; I48.91 Unspecified atrial fibrillation; I50.20 Unspecified systolic (congestive) heart failure; Z87.891 Personal history of nicotine dependence; Z79.899 Other long term (current) drug therapy; Z88.8 Allergy status to other drugs, medicaments and biological substances; Z20.828 Contact with and (suspected) exposure to other viral communicable diseases
CPT/HCPCS: 36415; 36430; 71045; 80048; 81003; 82274; 83735; 83880; 84484; 85025; 85610; 85730; 86850; 86900; 86901; 93005; 93010; 96374; 96375; 99284; 99285-25; J0696; J1940; P9016; U0002

== ENCOUNTER 2020-06-18 11:29 | Emergency (ER) | payer MEDICARE, OTHER ==
--- NOTE | 2020-06-18 12:01 | EDM.PDOC ---
<Brown Gupta W - Last Filed: 06/18/20 11:56> ED HPI GENERAL MEDICAL PROBLEM - General Stated Complaint: MIGRAINE HEADACHE Time Seen by Provider: 06/18/20 11:45 Source of Information: Reports: Patient History Limitations: Reports: No Limitations - History of Present Illness INITIAL COMMENTS - FREE TEXT/NARRATIVE: Pt. presents to ER with complaints of headache and worsening shortness of breath. Pt. states that he has a history of pleural effusion, and had a CT performed on 06/10. He states that he has frequent headaches that usually resolve with tylenol, but he states that he was told to abstain for using tylenol due to "bleeding". He states that he has been experiencing the headache intermittently for months, but states that it has been worse recently. Denies any head trauma. No difficulty with numbness/tingling in extremities, problems with speech or ambulation. Location: Reports: Head, Chest - Related Data Allergies Allergy/AdvReac Type Severity Reaction Status Date / Time amiodarone Allergy Hives Verified 05/04/20 14:18 colchicine Allergy Hives Verified 05/04/20 14:18 potassium chloride Allergy Hives Verified 05/04/20 14:18 [From Klor-Con] atorvastatin calcium AdvReac Muscle Verified 05/04/20 14:18 [From Lipitor] Aches lisinopril AdvReac Muscle Verified 05/04/20 14:18 Aches rosuvastatin calcium AdvReac Muscle Verified 05/04/20 14:18 [From Crestor] Aches simvastatin [From Zocor] AdvReac Muscle Verified 05/04/20 14:18 Aches Home Meds: Home Meds Cyanocobalamin (Vitamin B-12) [Vitamin B-12] 750 mcg PO BID 02/02/16 [History] Flaxseed Oil [Flax Oil] 4,000 mg PO BID 02/02/16 [History] Furosemide 80 mg PO BID 02/02/16 [History] Rivaroxaban [Xarelto] 20 mg PO BEDTIME 02/02/16 [History] metOLazone [Metolazone] 2.5 mg PO Q3D PRN 02/02/16 [History] Docosahexaenoic Acid [DHA] 200 mg PO BID 07/20/16 [History] Folic Acid 400 mg PO BID 07/20/16 [History] Nitroglycerin [Nitrostat] 0.4 mg SL Q5M PRN 07/20/16 [History] Non-Formulary Medication [NF Drug] 1,250 mg PO BID 07/20/16 [History] Non-Formulary Medication [NF Drug] 2 tab PO DAILY 07/20/16 [History] Non-Formulary Medication [NF Drug] 30 mg PO BID 07/20/16 [History] Non-Formulary Medication [NF Drug] 200 mg PO BID 07/20/16 [History] Constantine-3/DHA/Epa/Fish Oil [Constantine 3 500 Softgel] 200 mg PO BID 07/20/16 [History] Pyridoxine HCl (Vitamin B6) [Pyridoxine HCl] 30 mg PO BID 07/20/16 [History] Saw Danielson 500 mg PO BID 07/20/16 [History] Selenium 100 mcg PO DAILY 07/20/16 [History] Shark Cartilage [Shark Fin Cartilage] 1 tab PO BID 07/20/16 [History] Spironolactone [Aldactone] 50 mg PO DAILY 07/20/16 [History] Ubiquinol 100 mg PO BID 07/20/16 [History] cycloSPORINE [Restasis] 1 drop EYEBOTH DAILY 07/20/16 [History] Metoprolol Succinate [Toprol XL] 100 mg PO DAILY 11/27/16 [History] Escitalopram [Lexapro] 10 mg PO DAILY 08/20/19 [History] Past Medical History HEENT History: Reports: Impaired Vision Cardiovascular History: Reports: Afib, Cardiomyopathy, High Cholesterol Other Cardiovascular History: ICD, ventricular tachycardia, systolic heart failure Respiratory History: Reports: SOB Gastrointestinal History: Reports: None Genitourinary History: Reports: None Musculoskeletal History: Reports: None Neurological History: Reports: None Psychiatric History: Reports: None Endocrine/Metabolic History: Reports: Other (See Below) Other Endocrine/Metabolic History: impaired fasting glucose Hematologic History: Reports: None Immunologic History: Reports: None Oncologic (Cancer) History: Reports: None Dermatologic History: Reports: None - Past Surgical History HEENT Surgical History: Reports: Naso-Sinus Surgery Cardiovascular Surgical History: Reports: AICD Respiratory Surgical History: Reports: None GI Surgical History: Reports: Colonoscopy Male Surgical History: Reports: Prostate Biopsy, Vasectomy, Other (See Below) Neurological Surgical History: Reports: None Musculoskeletal Surgical History: Reports: Other (See Below) Oncologic Surgical History: Reports: None Dermatological Surgical History: Reports: Skin Biopsy Social & Family History - Caffeine Use Caffeine Use: Reports: Soda, Tea ED ROS GENERAL - Review of Systems Review Of Systems: See Below Constitutional: Reports: Malaise. Denies: Fever, Chills, Weakness, Fatigue HEENT: Reports: No Symptoms Respiratory: Reports: Shortness of Breath Cardiovascular: Reports: No Symptoms Endocrine: Reports: No Symptoms GI/Abdominal: Reports: No Symptoms : Reports: No Symptoms Musculoskeletal: Reports: No Symptoms Skin: Reports: No Symptoms Neurological: Reports: Headache Psychiatric: Reports: No Symptoms Hematologic/Lymphatic: Reports: No Symptoms Immunologic: Reports: No Symptoms ED EXAM, GENERAL - Physical Exam Exam: See Below Exam Limited By: No Limitations General Appearance: Alert, WD/WN, No Apparent Distress Eye Exam: Bilateral Eye: EOMI, PERRL Head: Atraumatic, Normocephalic Neck: Normal Inspection, Supple, Non-Tender, Full Range of Motion Respiratory/Chest: No Respiratory Distress, No Accessory Muscle Use, Decreased Breath Sounds Cardiovascular: Normal Peripheral Pulses, Regular Rate, Rhythm, No Edema, No JVD Neurological: Alert, Oriented, CN II-XII Intact, Normal Cognition, Normal Gait, Normal Reflexes, No Motor/Sensory Deficits Departure - Departure Disposition: DC/Tfer to Acute Hospital 02 Clinical Impression: Elevated troponin, SOB (shortness of breath), COVID-19, Elevated d-dimer, Cough CHF exacerbation Qualifiers: Heart failure type: unspecified Qualified Code(s): I50.9 - Heart failure, unspecified Fatigue Qualifiers: Fatigue type: unspecified Qualified Code(s): R53.83 - Other fatigue Headache Qualifiers: Headache type: unspecified Headache chronicity pattern: chronic headache Intractability: not intractable Qualified Code(s): R51.9 - Headache, unspecified; G89.29 - Other chronic pain - Discharge Information Referrals: Oz Restrepo NP [Primary Care Provider] - Forms: Interfacility Transfer MEGAN <Vee Gallagher - Last Filed: 06/18/20 13:54> ED HPI GENERAL MEDICAL PROBLEM - History of Present Illness Onset: Gradual Quality: Reports: Ache, Throbbing Severity: Moderate Improves with: Reports: Rest Worsens with: Reports: Movement Context: Reports: Other Associated Symptoms: Reports: Cough, Headaches, Loss of Appetite ED EXAM, GENERAL - Physical Exam Exam: See Below Exam Limited By: No Limitations General Appearance: Alert, WD/WN, No Apparent Distress Eye Exam: Bilateral Eye: EOMI, PERRL Ears: Normal External Exam, Normal Canal, Hearing Grossly Normal Ear Exam: Bilateral Ear: Auricle Normal, Canal Normal, TM normal Throat/Mouth: Normal Inspection, Normal Lips, Normal Teeth, Normal Oropharynx, Normal Voice, No Airway Compromise Head: Atraumatic, Normocephalic Neck: Normal Inspection, Supple, Non-Tender, Full Range of Motion Respiratory/Chest: No Respiratory Distress, No Accessory Muscle Use, Chest Non- Tender, Decreased Breath Sounds Cardiovascular: Normal Peripheral Pulses, Regular Rate, Rhythm, No Edema, No JVD, No Rub Peripheral Pulses: 4+: Radial (L), Radial (R), Dorsalis Pedis (L), Dorsalis Pedis (R) GI/Abdominal: Normal Bowel Sounds, Soft, Non-Tender, No Distention, No Mass (Male) Exam: Deferred Rectal (Males) Exam: Deferred Neurological: Alert, Oriented, CN II-XII Intact, Normal Cognition, Normal Gait, No Motor/Sensory Deficits Psychiatric: Normal Affect, Normal Mood Skin Exam: Warm, Dry, Intact, Normal Color Course - Orders/Labs/Meds Orders: Active Orders 24 hr Category Date Time Status EKG Documentation Completion [RC] STAT Care 06/18/20 11:54 Active Sodium Chloride 0.9% [Saline Flush] Med 06/18/20 13:37 Ordered 10 ml FLUSH ASDIRECTED PRN Peripheral IV Insertion Adult [OM.PC] Stat Oth 06/18/20 13:37 Ordered Medication Orders Sodium Chloride (Saline Flush) 10 ml FLUSH ASDIRECTED PRN PRN Reason: Keep Vein Open Labs: Laboratory Tests 06/18/20 06/18/20 06/18/20 Range/Units 12:19 12:47 12:47 WBC 8.1 (4.0-10.0) x10^3/uL RBC 5.02 (4.5-6.0) x10^6/uL Hgb 13.4 L D (14.0-18.0) g/dL Hct 42.7 (40.0-52.0) % MCV 85.1 D (78.0-93.0) fL MCH 26.7 (26.0-32.0) pg MCHC 31.4 L (32.0-36.0) g/dL RDW Coeff of Angelica 27.6 H (10.0-15.0) % Plt Count 94 L D (130-400) x10^3/uL Neut % (Auto) 87.1 H (50.0-80.0) % Lymph % (Auto) 4.4 L (25.0-50.0) % [place] % (Auto) 8.4 (2.0-11.0) % Eos % (Auto) 0.0 (0.0-4.0) % Baso % (Auto) 0.1 L (0.2-1.2) % PT 14.8 H D (9.5-12.3) SEC INR 1.4 L (2.0-3.5) D-Dimer, Quantitative (<=0.58) mg/LFEU Sodium (136-145) mmol/L Potassium (3.5-5.1) mmol/L Chloride (98-107) mmol/L Carbon Dioxide (21-32) mmol/L Anion Gap (10-20) mmol/L BUN (7-18) mg/dL Creatinine (0.70-1.30) mg/dL Est Cr Clr Drug Dosing Estimated GFR (MDRD) Glucose (74-106) mg/dL Calcium (8.5-10.1) mg/dL Corrected Calcium (8.5-10.1) mg/dL Total Bilirubin (0.2-1.0) mg/dL AST (15-37) U/L ALT (16-63) U/L Alkaline Phosphatase (46-116) U/L Troponin I (<=0.056) ng/mL NT-Pro-B Natriuret Pep (<=125) pg/mL Total Protein (6.4-8.2) g/dL Albumin (3.4-5.0) g/dL Globulin Albumin/Globulin Ratio SARS CoV-2 RNA Rapid ANNA Positive H (NEGATIVE) 06/18/20 06/18/20 06/18/20 Range/Units 12:47 12:47 12:47 WBC (4.0-10.0) x10^3/uL RBC (4.5-6.0) x10^6/uL Hgb (14.0-18.0) g/dL Hct (40.0-52.0) % MCV (78.0-93.0) fL MCH (26.0-32.0) pg MCHC (32.0-36.0) g/dL RDW Coeff of Angelica (10.0-15.0) % Plt Count (130-400) x10^3/uL Neut % (Auto) (50.0-80.0) % Lymph % (Auto) (25.0-50.0) % [place] % (Auto) (2.0-11.0) % Eos % (Auto) (0.0-4.0) % Baso % (Auto) (0.2-1.2) % PT (9.5-12.3) SEC INR (2.0-3.5) D-Dimer, Quantitative 3.47 H (<=0.58) mg/LFEU Sodium 130 L (136-145) mmol/L Potassium 4.1 (3.5-5.1) mmol/L Chloride 94 L (98-107) mmol/L Carbon Dioxide 28 (21-32) mmol/L Anion Gap 12.1 (10-20) mmol/L BUN 32 H (7-18) mg/dL Creatinine 1.4 H (0.70-1.30) mg/dL Est Cr Clr Drug Dosing TNP Estimated GFR (MDRD) 50 Glucose 204 H (74-106) mg/dL Calcium 8.6 (8.5-10.1) mg/dL Corrected Calcium 9.40 (8.5-10.1) mg/dL Total Bilirubin 2.0 H (0.2-1.0) mg/dL AST 34 (15-37) U/L ALT 34 (16-63) U/L Alkaline Phosphatase 84 (46-116) U/L Troponin I 0.639 H* (<=0.056) ng/mL NT-Pro-B Natriuret Pep 85583 H (<=125) pg/mL Total Protein 6.4 (6.4-8.2) g/dL Albumin 3.0 L (3.4-5.0) g/dL Globulin 3.4 Albumin/Globulin Ratio 0.88 SARS CoV-2 RNA Rapid ANNA (NEGATIVE) Meds: Medications Generic Name Dose Route Start Last Admin Trade Name Freq PRN Reason Stop Dose Admin Sodium Chloride 10 ml 06/18/20 13:37 Saline Flush FLUSH ASDIRECTED PRN Keep Vein Open Discontinued Medications Generic Name Dose Route Start Last Admin Trade Name Freq PRN Reason Stop Dose Admin Furosemide 40 mg 06/18/20 13:37 Lasix IV 06/18/20 13:38 ONETIME ONE Departure - Departure Time of Disposition: 13:45 Condition: Fair - Discharge Information *PRESCRIPTION DRUG MONITORING PROGRAM REVIEWED*: Not Applicable *COPY OF PRESCRIPTION DRUG MONITORING REPORT IN PATIENT JOHN: Not Applicable - My Orders Last 24 Hours: My Active Orders 06/18/20 13:37 Sodium Chloride 0.9% [Saline Flush] 10 ml FLUSH ASDIRECTED PRN Peripheral IV Insertion Adult [OM.PC] Stat - Assessment/Plan Last 24 Hours: My Active Orders 06/18/20 13:37 Sodium Chloride 0.9% [Saline Flush] 10 ml FLUSH ASDIRECTED PRN Peripheral IV Insertion Adult [OM.PC] Stat Assessment:: 1. Cough 2. headache 3. Malaise 4. Elevated troponin 5. Covid-19 positive 6. elevated BNP 7. Congested Heart failure exacerbation 8. elevated D-dimer Plan: 1. Assumed care after report from Brown MORAN 2. Labs completed in the ER. Results reviewed with the patient 3. Influenza swab completed-negative 4. Covid 19 swab completed-positive 5. IV inititated 6. EKG completed in ER 7. IV Lasix 40mg given for the fluid over load 8. Consultation completed with Nikita Restrepo who Stated the patient would be better serviced and [facility] for the patient is and does have a complex history requiring specialty intervention at times. 9. Consultation completed with [facility] hospitalist program who has agreed for admission to telemetry for further medical management. 10. Will be transferred by ambulance for further medical care 11. Patient and nursing staff was updated regarding the plan of care 12. Patient and family are agreeable to the above plan of care 13. All questions and concerns were addressed with the patient and family prior to transfer
--- NOTE | 2020-06-18 12:44 | CR ---
[id number] RAD/RAD Chest PA And Lateral EXAM: RAD Chest PA And Lateral INDICATION: SYNCOPE,BRADYCARDIA. COMPARISON: May 04, 2020. DISCUSSION: Left chest wall cardiac conduction device. Cardiomediastinal silhouette is normal in size and contour. No infiltrate, effusion, pneumothorax, or edema. Calcified granulomas. IMPRESSION: No acute cardiopulmonary abnormality. Natanael Hinojosa DO 06/18/20 [id number] Thank you for allowing us to participate in the care of your patient.
--- NOTE | 2020-06-18 12:59 | CT ---
[id number] CT/CT Head WO IV EXAM: NONCONTRAST HEAD CT INDICATION: HEADACHE. COMPARISON: None. DISCUSSION: There is mild generalized atrophy. The espinoza and white matter are normal in attenuation. No mass effect or midline shift. No acute hemorrhage or extra-axial fluid collection. No acute territorial infarct is identified. A limited look at the orbits and paranasal sinuses is unremarkable. IMPRESSION: 1. Negative exam. Abe Stevens MD 06/18/20 [id number] Thank you for allowing us to participate in the care of your patient.
[2020-06-18 13:31] LABS: CHLORIDE,CL 94 mmol/L (98-107); SODIUM,NA 130 mmol/L (136-145)
[2020-06-18 13:32] LABS: ANION GAP 12.1 mmol/L (10-20)
[2020-06-18] MEDS ORDERED: Sodium Chloride 0.9% 10 ML Syringe FLUSH PRN (13:37)
[2020-06-18] MEDS: Furosemide 40 MG/4 ML VIAL IV ONE (13:40)
[2020-06-18 14:12] VITALS: BP 106/67; PULSE 94
== END 2020-06-18 14:30 | disposition short-term general hospital (02) ==
LOC: VM.ED 11:29
DX: U07.1 COVID-19 (principal); R51.9 Headache, unspecified; G89.29 Other chronic pain; I50.9 Heart failure, unspecified; R79.1 Abnormal coagulation profile; R79.89 Other specified abnormal findings of blood chemistry; I48.91 Unspecified atrial fibrillation; Z88.8 Allergy status to other drugs, medicaments and biological substances; Z79.899 Other long term (current) drug therapy
CPT/HCPCS: 36415; 70450; 71046; 80053; 83880; 84484; 85025; 85379; 85610; 87804; 87804-59; 93005; 96374; 99284; 99285-25; J1940; U0002